=== PATIENT | female | born 1950 | race African-American/Black ===

== ENCOUNTER → 2024-04-12 | Outpatient (CLI) | payer MEDICARE ==
[~2024-04-12] MED LIST: GASTROGRAFIN SOLUTION 30ML As Ordered ONE; ISOVUE-370 76% 100ML VIAL As Ordered ONE; LOSA50TA5; PRAV20TA2; ZOLP10TA2
== END ==
LOC: M RAD 12:43
PROVIDERS: ATTEND Specialist
DX: C21.0 Malignant neoplasm of anus, unspecified (principal)
CPT/HCPCS: 71260; 74177; Q9963; Q9967

== ENCOUNTER 2024-06-30 08:33 | Day surgery (SDC) | payer MEDICARE ==
[~2024-06-30] VITALS: Ht 170.2 cm; Wt 74.0 kg
[~2024-06-30 08:33] MED LIST changes: +ALBU8.5H INH; +CYCL-707 PO; -GASTROGRAFIN SOLUTION 30ML As Ordered ONE; -ISOVUE-370 76% 100ML VIAL As Ordered ONE; -LOSA50TA5; +LOSA50TA5 PO; -PRAV20TA2; +PRAV20TA2 PO; +THERTAB52 PO; +ZOLP10TA2 PO
[2024-06-30] MEDS: NS 1,000 ML IV ONE (08:48)
[2024-06-30] MEDS ORDERED: LIDOCAINE 2% 100MG/5ML SDV (FOR ANES.) As Ordered ONE (09:03)
[2024-06-30] MEDS ORDERED: propofoL 500 MG/50 ML VIAL As Ordered ONE (09:03)
[2024-06-30] MEDS ORDERED: ePHEDrine SULFATE 25 MG/5 ML(5MG/ML) SYRINGE As Ordered ONE (09:25)
[2024-06-30 09:33] VITALS: TEMP 96.6
[2024-06-30 09:49] VITALS: BP 105/63; O2SAT 100
== END 2024-06-30 10:19 | disposition home or self-care (01) ==
LOC: M OPP 08:33
PROVIDERS: ATTEND Surgery
DX: Z86.010 Personal history of colon polyps (principal); Z85.048 Personal history of other malignant neoplasm of rectum, rectosigmoid junction, and anus; D12.6 Benign neoplasm of colon, unspecified; K63.5 Polyp of colon; K57.30 Diverticulosis of large intestine without perforation or abscess without bleeding; I10 Essential (primary) hypertension; E78.00 Pure hypercholesterolemia, unspecified; M19.90 Unspecified osteoarthritis, unspecified site; Z88.2 Allergy status to sulfonamides; Z92.3 Personal history of irradiation; Z79.899 Other long term (current) drug therapy